=== PATIENT | female | born 1980 | race Caucasian/White ===

== ENCOUNTER 2025-05-15 06:14 | Day surgery (SDC) | payer BC ==
[~2025-05-15 06:14] MED LIST: SODIUM CHLORIDE 0.9% 1,000 ML IV SCH
[2025-05-15 06:50] VITALS: BP 132/90; PULSE 71; RESP 16; TEMP 97.1
[2025-05-15] MEDS: SODIUM CHLORIDE 0.9% 500 ML 500 ML IV ONE (07:33)
--- NOTE | 2025-05-16 14:13 | P.EPPROC ---
- EP Procedure Note Electrophysiology Procedure Note: Diagnosis Recurrent presyncope Twelve-lead EKG shows sinus rhythm normal [place] narrow QRS Tilt table test per protocol Baseline blood pressure 143/93 mmHg, baseline heart rate 55 beats a minute Patient was tilted upright in angle of 70 degrees per protocol There was a gradual progressive decline in her blood pressure. The lowest blood pressure recorded was 96/86 mmHg Very mild increase in heart rate up to the 90s, gradually The patient complained of numbness and feeling sick No syncope When she was laid supine her blood pressure improved 223/75 mmHg and heart rate went back into the 60s Impression Normal twelve-lead EKG Dysautonomic response to upright tilting/orthostatic hypotension syndrome
== END 2025-05-15 08:59 | disposition home or self-care (01) ==
LOC: CATHEP 06:14
PROVIDERS: ATTEND Internal Medicine Clinical Cardiac Electrophysiology
DX: I95.1 Orthostatic hypotension (principal); E78.5 Hyperlipidemia, unspecified; Z98.82 Breast implant status; Z88.1 Allergy status to other antibiotic agents
CPT/HCPCS: 81025; 93660